=== PATIENT | female | born 1965 | race Caucasian/White ===

== ENCOUNTER → 2021-08-14 13:14 | Outpatient (CLI) | payer BC, SELFPAY ==
--- NOTE | ~2021-08-14 | MR_ITS ---
EXAMINATION: MR brain/brain stem wo/w con DATE: 08/14/2021 15:47 INDICATION: Visual field defect. Brain tumor. TECHNIQUE: Magnetic resonance imaging (MRI) of the brain and brainstem was performed without and with 20 mL MultiHance intravenous contrast. COMPARISON: None. FINDINGS: There are changes of resection in posterior right temporal lobe. There is no intracranial h emorrhage, acute infarction, or abnormal intracranial mass lesion. There are scattered areas of nonsp ecific increased T2-weighted signal intensity in the cerebral white matter, which is within normal li mits for the patient's age. The ventricles are normal in size. The paranasal sinuses are clear. The o rbits are normal. There is a small left mastoid effusion. IMPRESSION: 1. Changes of resection in posterior right temporal lobe. No residual or recurrent neoplasm. Reviewed, dictated and finalized at location A. IMPRESSION: 1. Changes of resection in posterior right temporal lobe. No residual or recurr ent neoplasm.
[2021-08-14 15:28] LABS: Estimated Glomerular Filt Rate > 60
== END ==
PROVIDERS: PCP Family Medicine Sports Medicine; Visit Provider Family Medicine Sports Medicine
DX: H53.40 Unspecified visual field defects (principal); Z87.898 Personal history of other specified conditions
CPT/HCPCS: 70553; A9577